=== PATIENT | female | born 2000 | race Caucasian/White ===

== ENCOUNTER 2022-08-27 23:34 | Emergency (ER) | payer SELFPAY ==
[~2022-08-27] VITALS: Ht 165.1 cm; Wt 99.8 kg
[2022-08-27 23:41] VITALS: BP 119/62
--- NOTE | 2022-08-27 23:45 | NUR ---
TO LOBBY A/W BED AMBULATORY
[2022-08-28] MEDS ORDERED: LIDOCAINE 1% 500 MG/ 50 ML VIAL INJ ONE (02:05)
[2022-08-28] MEDS ORDERED: LIDOCAINE MPF 1% 5 ML ONE (02:27)
--- NOTE | 2022-08-28 02:27 | NUR ---
pt to bed 12.
[2022-08-28] MEDS ORDERED: SULF-59 PO (03:23)
--- NOTE | 2022-08-28 03:30 | NUR ---
Written and verbal after care instructions given and explained. Patient alert, oriented and verbalized understanding of instructions. Ambulatory with steady gait. All questions addressed prior to discharge. ID band removed. Patient advised to follow up with PMD. Rx of BACTRIM given. Patient educated on indication of medication including possible reaction and side effects. Opportunity to ask questions provided and answered.
== END 2022-08-28 03:30 | disposition home or self-care (01) ==
LOC: MED 23:34
DX: L02.213 Cutaneous abscess of chest wall (principal)
CPT/HCPCS: 10060; 99284; J2001